=== PATIENT | female | born 1970 | race Caucasian/White ===

== ENCOUNTER 2019-07-14 00:54 | Emergency (ER) | payer SELFPAY ==
[2019-07-14 01:16] VITALS: TEMP 97.7
[2019-07-14] MEDS ORDERED: HYDROmorphone HCL INJ 2 MG/ML VIAL IV ONE (01:22)
[2019-07-14] MEDS ORDERED: METOCLOPRAMIDE HCL INJ 10 MG/2 ML VIAL IV ONE (01:23)
[2019-07-14] MEDS ORDERED: SODIUM CHLORIDE 0.9% 1000ML 1,000 ML IVS ONE (01:23)
--- NOTE | 2019-07-14 01:26 | ED.PDOC ---
History of Present Illness - General Chief Complaint: Dental/Mouth Stated Complaint: toothache x's 2 days, headache today Time Seen by Provider: 07/14/19 01:14 - History of Present Illness Initial Comments: 48F presents to the ED complaining of headache, toothache. The PMH is significant for crohn's disease, gastritis, COPD. She states that she broke her tooth on the left upper side two days ago and this has been causing her significant dental pain. She notes that this morning she had sudden onset of diffuse headache that she describes as "throbbing" and "the worst headache of my life." The headache is diffuse, worse with movement. No fevers, no focal neurologic complaints. No history of trauma. No other symptoms at this time. Allergies/Adverse Reactions: Allergies Codeine Allergy (Verified 07/14/19 01:12) Ketorolac Tromethamine [From Toradol] Allergy (Unverified 12/20/13 08:40) Morphine Allergy (Verified 07/14/19 01:12) Penicillins Allergy (Verified 07/14/19 01:12) Sulfa Drugs Allergy (Verified 07/14/19 01:12) Home Medications: Ambulatory Orders Zpnnagkrvj-Quykkhxxvisha-Hheyk [Fioricet] 1 cap PO Q4H PRN #20 cap 07/14/19 Clindamycin HCl 300 mg PO Q6HR #28 cap 07/14/19 raNITIdine HCL [Zantac] 300 mg PO DAILY 07/14/19 Review of Systems - Review of Systems Constitutional: States: malaise. Denies: chills, fever EENTM: States: nose congestion, mouth pain. Denies: eye pain, blurred vision, ear pain, throat swelling, mouth swelling Respiratory: Denies: cough, short of breath Cardiology: Denies: chest pain, palpitations Gastrointestinal/Abdominal: Denies: abdominal pain, nausea, vomiting Genitourinary: Denies: discharge, dysuria, frequency Musculoskeletal: States: no symptoms reported Skin: States: no symptoms reported Neurological: States: headache. Denies: numbness, paresthesia, tingling, weakness Endocrine: Denies: no symptoms reported Hematologic/Lymphatic: Denies: no symptoms reported Past Medical History (General) - Patient Medical History Hx Seizures: No Hx Stroke: No Hx Dementia: No Hx Asthma: No Hx of COPD: Yes Hx Cardiac Disorders: No Hx Congestive Heart Failure: No Hx Pacemaker: No Hx Hypertension: No Hx Thyroid Disease: No Hx Diabetes: No Hx Gastroesophageal Reflux: No Hx Renal Disease: No Hx Cancer: No Hx of HIV: No Hx Hepatitis C: No Hx MRSA: No Surgical History: other - Vaccination History Hx Tetanus, Diphtheria Vaccination: No Hx Influenza Vaccination: No - Social History Hx Tobacco Use: Yes Hx Alcohol Use: Yes Family Medical History - Family History Mother Family History: Unknown Physical Exam - Physical Exam General Appearance: Anxious, Restless, Well Developed, Well Groomed Eye Exam: bilateral normal Ears, Nose, Throat: hearing grossly normal, normal ENT inspection, normal pharynx, nasal congestion, other - fractured left upper first molar. No drainable fluid collection Neck: non-tender, full range of motion, supple, normal inspection Respiratory: lungs clear, normal breath sounds Neurologic: no motor/sensory deficits, alert, normal mood/affect, oriented x 3 Progress - Progress Progress: 07/14/19 02:13 Patient reassessed, her pain is resolved. Neurologic exam is non-focal. No evidence of acute intracranial process on CT head. There is no drainable fluid collection. She will continue outpatient follow up with dentistry and her PCP. H ome care instructions and return indications reviewed. - EKG/XRAY/CT CT: No acute intracranial process, see report Departure - Departure Clinical Impression: Dental caries Migraine headache Qualifiers: Migraine type: without aura Status migrainosus presence: with status migrainosus Intractability: not intractable Qualified Code(s): G43.001 - Migraine without aura, not intractable, with status migrainosus Disposition: Discharge to Home or Self Care Condition: Good Departure Forms: ED Discharge - Pt. Copy, Patient Portal Self Enrollment Instructions: DI for Dental Pain Diet: resume usual diet Activity: increase activity as tolerated Prescriptions: Clindamycin HCl 300 mg PO Q6HR #28 cap Hdrcjrnfff-Cvdnzzyiwmqcy-Ofqpk [Fioricet] 1 cap PO Q4H PRN #20 cap PRN Reason: Headache/Migraine Pain Home Medications: Ambulatory Orders Emwdavqrls-Wgsgsefsannst-Qmith [Fioricet] 1 cap PO Q4H PRN #20 cap 07/14/19 Clindamycin HCl 300 mg PO Q6HR #28 cap 07/14/19 raNITIdine HCL [Zantac] 300 mg PO DAILY 07/14/19 Additional Instructions: Follow up with your primary care provider and with dentistry. Take all antibiotics until gone. You may take tylenol and motrin in addition to prescribed pain medications. Return to the ED with any worsening of your symptoms. Comments: Jevon Calles MD Emergency Medicine Physician Number [id number]
--- NOTE | 2019-07-14 01:54 | CT ---
PROCEDURE: CT Head CLINICAL HISTORY: 48 years Female sudden onset headache TECHNIQUE: Contiguous axial CT images obtained through the brain without IV contrast. Coronal and sagittal reformats also provided. This CT exam was performed according to our departmental dose-optimization program, which includes one or more of the following dose reduction techniques: automated exposure control, adjustment of the mA and/or kV according to patient size, and/or use of iterative reconstruction technique. COMPARISON: No prior exams provided for comparison. FINDINGS: There is no intracranial hemorrhage, extraaxial collection, or acute transcortical infarction. The ventricles are normal in size and contour without mass-effect or midline shift. Osseous structures are normal. Minimal mucosal thickening in the maxillary sinuses, left greater than right. Trace secretions in the right ethmoid sinus. The remainder of the paranasal sinuses and bilateral mastoid air cells are clear. Visualized orbital structures are intact. IMPRESSION: Minimal maxillary and right ethmoid sinusitis. No other acute intracranial abnormality. Electronically signed by: Isaura Lui MD 07/14/2019 1:53 AM CDT
[2019-07-14 01:58] VITALS: BP 140/85; O2SAT 98
== END 2019-07-14 02:29 | disposition home or self-care (01) ==
LOC: ER 00:54
DX: K02.9 Dental caries, unspecified (principal); G43.001 Migraine without aura, not intractable, with status migrainosus; S02.5XXA Fracture of tooth (traumatic), initial encounter for closed fracture; J44.9 Chronic obstructive pulmonary disease, unspecified; X58.XXXA Exposure to other specified factors, initial encounter; Y92.9 Unspecified place or not applicable; Z87.891 Personal history of nicotine dependence; Z88.5 Allergy status to narcotic agent; Z88.0 Allergy status to penicillin; Z88.2 Allergy status to sulfonamides
CPT/HCPCS: 70450; 80048; 85025; J1170; J2765; J7030

== ENCOUNTER 2019-09-26 22:32 | Emergency (ER) | payer SELFPAY ==
[2019-09-26 22:44] VITALS: TEMP 97.6
[2019-09-26] MEDS ORDERED: ACETAMINOPHEN IV 1000MG 1,000 MG in PREMIX BOTTLE 1 BOTTLE IVPB ONE (22:53)
--- NOTE | 2019-09-26 23:08 | ED.PDOC ---
History of Present Illness - General Chief Complaint: Headache Stated Complaint: headache Time Seen by Provider: 09/26/19 22:52 Source: patient Exam Limitations: no limitations - History of Present Illness Initial Comments: 48 yo F who presents for headache, diffuse, feels like "someone is tugging my hair out", throbbing, constant, worsening slowly since onset 6 hours ago, asso ciated nausea. Similar to headaches in past which she has been seen here for, negative CT head at that time. Denies f/c, neck pain/stiffness, CP, SOB, cough, congestion, abd pain, v/d, change in vision, weakness, numbness. Allergies/Adverse Reactions: Allergies Codeine Allergy (Verified 07/14/19 01:12) Ketorolac Tromethamine [From Toradol] Allergy (Verified 07/14/19 02:28) Morphine Allergy (Verified 07/14/19 01:12) Penicillins Allergy (Verified 07/14/19 01:12) Sulfa Drugs Allergy (Verified 07/14/19 01:12) Home Medications: Ambulatory Orders Mpyvjaqnhw-Mwubcsvwthltn-Mmikl [Fioricet] 1 cap PO Q4H PRN #20 cap 07/14/19 Clindamycin HCl 300 mg PO Q6HR #28 cap 07/14/19 raNITIdine HCL [Zantac] 300 mg PO DAILY 07/14/19 Julvxstodbfay-Opqy-Bqvtktawsb [Fioricet] 1 ea PO Q8H PRN #6 tab 09/27/19 Review of Systems - Review of Systems Constitutional: Denies: chills, fever EENTM: Denies: blurred vision, double vision, nose congestion, throat pain Respiratory: Denies: cough, short of breath Cardiology: Denies: chest pain, palpitations, syncope Gastrointestinal/Abdominal: States: nausea. Denies: abdominal pain, constipation, diarrhea, vomiting Genitourinary: Denies: dysuria, frequency, hematuria Musculoskeletal: Denies: back pain, neck pain Skin: Denies: lesions, rash Neurological: States: headache. Denies: numbness, weakness Past Medical History (General) - Patient Medical History Hx Seizures: No Hx Stroke: No Hx Dementia: No Hx Asthma: No Hx of COPD: Yes Hx Cardiac Disorders: No Hx Congestive Heart Failure: No Hx Pacemaker: No Hx Hypertension: No Hx Thyroid Disease: No Hx Diabetes: No Hx Gastroesophageal Reflux: No Hx Renal Disease: No Hx Cancer: No Hx of HIV: No Hx Hepatitis C: No Hx MRSA: No Surgical History: other - Vaccination History Hx Tetanus, Diphtheria Vaccination: No Hx Influenza Vaccination: No - Social History Hx Tobacco Use: Yes Hx Alcohol Use: Yes Family Medical History - Family History Mother Family History: Unknown Physical Exam - Physical Exam General Appearance: Alert, Comfortable, No apparent distress, Well Developed, Well Nourished Eyes, Ears, Nose, Throat Exam: PERRL/EOMI, normal ENT inspection Neck: non-tender, full range of motion, supple, normal inspection, trachea midline Cardiovascular/Chest: normal peripheral pulses, regular rate, rhythm, no edema, no gallop, no JVD, no murmur Respiratory: chest non-tender, lungs clear, normal breath sounds, no respiratory distress, no accessory muscle use Gastrointestinal/Abdominal: normal bowel sounds, non tender, soft, no organomegaly, no pulsatile mass Back Exam: normal inspection, no CVA tenderness, no vertebral tenderness Extremity: normal range of motion, non-tender, normal inspection, no pedal edema, no calf tenderness Mental Status: alert, oriented x 3 pmp Exam: other - CN intact Coordination/Gait: normal finger to nose, normal gait Motor/Sensory: no motor deficit, no sensory deficit Lower Extremity DTR: left, patellar: 2+, right, patellar: 2+ Skin Exam: warm/dry, normal color Lymphatic: no adenopathy Progress - Progress Progress: I have explained and reviewed all results with the pt. Headache resolved after headache cocktail, neuro intact, VS wnl, labs unremarkable. I explained that emergent conditions may arise and to return to the ER for new, worsening, or any persistent conditions including but not limited to f/c, neck stiffness, weakness, numbness, intractable vomiting, continuation/worsening HER. I've explained the importance of f/u for recheck. All questions and concerns addressed at this time. Pt understands and agrees with plan. Pt well appearing, NAD, is stable for discharge. Audrey Becker MD Emergency Medicine Physician Billing Number [id number] - Results/Orders Results/Orders: Laboratory Results - last 24 hr 09/26/19 09/26/19 09/26/19 22:53 23:02 23:02 WBC 8.3 RBC 4.77 Hgb 13.4 Hct 40.7 MCV 85.5 MCH 28.2 MCHC 33.0 RDW 13.6 Plt Count 264 MPV 7.6 Absolute Neuts (auto) 5.00 Absolute Lymphs (auto) 2.20 Absolute Monos (auto) 0.80 Absolute Eos (auto) 0.20 Absolute Basos (auto) 0.10 Neutrophils % 59.8 Lymphocytes % 26.5 Monocytes % 9.9 H Eosinophils % 2.6 Basophils % 1.2 Sodium 136 Potassium 3.7 Chloride 104 Carbon Dioxide 23 Anion Gap 12.7 BUN 24 H Creatinine 1.05 BUN/Creatinine Ratio 22.9 H Random Glucose 105 Serum Osmolality 276.4 Calcium 8.9 Total Bilirubin 0.4 AST 18 ALT 11 Alkaline Phosphatase 88 Serum Total Protein 6.8 Albumin 3.7 Globulin 3.1 Albumin/Globulin Ratio 1.2 Urine Color Urine Appearance Urine pH Ur Specific Lula Urine Protein Urine Glucose (UA) Urine Ketones Urine Blood Urine Nitrite Urine Bilirubin Urine Urobilinogen Ur Leukocyte Esterase Urine RBC Urine WBC Ur Epithelial Cells Urine Bacteria Urine HCG, Qual Negative 09/26/19 23:48 WBC RBC Hgb Hct MCV MCH MCHC RDW Plt Count MPV Absolute Neuts (auto) Absolute Lymphs (auto) Absolute Monos (auto) Absolute Eos (auto) Absolute Basos (auto) Neutrophils % Lymphocytes % Monocytes % Eosinophils % Basophils % Sodium Potassium Chloride Carbon Dioxide Anion Gap BUN Creatinine BUN/Creatinine Ratio Random Glucose Serum Osmolality Calcium Total Bilirubin AST ALT Alkaline Phosphatase Serum Total Protein Albumin Globulin Albumin/Globulin Ratio Urine Color Yellow Urine Appearance Clear Urine pH 6.5 Ur Specific Lula 1.015 Urine Protein Negative Urine Glucose (UA) Negative Urine Ketones Negative Urine Blood Negative Urine Nitrite Negative Urine Bilirubin Negative Urine Urobilinogen 0.2 Ur Leukocyte Esterase Negative Urine RBC 0 Urine WBC 0 Ur Epithelial Cells 0-1 Urine Bacteria 0 Urine HCG, Qual Vital Signs - 24 hr 09/26/19 09/26/19 09/27/19 22:42 23:32 00:00 Temperature 97.6 F Pulse Rate [ 77 77 96 H Left Apical] Respiratory 14 14 14 Rate Blood Pressure 153/110 125/91 113/78 [Left Arm] O2 Sat by Pulse 100 99 99 Oximetry 09/27/19 00:35 Temperature Pulse Rate [ 96 H Left Apical] Respiratory 14 Rate Blood Pressure 113/78 [Left Arm] O2 Sat by Pulse 99 Oximetry FROM PREVIOUS VISIT FOR SIMILAR SX: PROCEDURE: CT Head CLINICAL HISTORY: 48 years Female sudden onset headache TECHNIQUE: Contiguous axial CT images obtained through the brain without IV contrast. Coronal and sagittal reformats also provided. This CT exam was performed according to our departmental dose-optimization program, which incl udes one or more of the following dose reduction techniques: automated exposure control, adjustment of the mA and/or kV according to patient size, and/or use of iterative reconstruction technique. COMPARISON: No prior exams provided for comparison. FINDINGS: There is no intracranial hemorrhage, extraaxial collection, or acute transcortical infarction. The ventricles are normal in size and contour without mass-effect or midline shift. Osseous structures are normal. Minimal mucosal thickening in the maxillary sinuses, left greater than right. Trace secretions in the right ethmoid sinus. The remainder of the paranasal sinuses and bilateral mastoid air cells are clear. Visualized orbital structures are intact. IMPRESSION: Minimal maxillary and right ethmoid sinusitis. No other acute intracranial abnormality. Electronically signed by: Isaura Lui MD 07/14/2019 1:53 AM CDT Departure - Departure Clinical Impression: Headache Time of Disposition: 00:12 Disposition: Discharge to Home or Self Care Health Concerns: condition: stable Departure Forms: ED Discharge - Pt. Copy, Patient Portal Self Enrollment Instructions: DI for Headache Prescriptions: Ozhqbasasxsgy-Eyey-Mogxxkkwao [Fioricet] 1 ea PO Q8H PRN #6 tab PRN Reason: Headache Or Mild Pain Home Medications: Ambulatory Orders Oemycuexbi-Dciybzuzxpjsi-Nbovp [Fioricet] 1 cap PO Q4H PRN #20 cap 07/14/19 Clindamycin HCl 300 mg PO Q6HR #28 cap 07/14/19 raNITIdine HCL [Zantac] 300 mg PO DAILY 07/14/19 Rvgifrbwjgqmw-Dcnq-Epznhjmuoq [Fioricet] 1 ea PO Q8H PRN #6 tab 09/27/19 Comments: Follow up: [facility] As needed, if symptoms worsen Your Primary Care Physician Make appointment, two days, for follow up
[2019-09-26] MEDS: METOCLOPRAMIDE HCL INJ 10 MG/2 ML VIAL IV ONE (23:09)
[2019-09-26] MEDS: SODIUM CHLORIDE 0.9% 1000ML 1,000 ML IVS ONE (23:09)
[2019-09-26] MEDS: diphenhydrAMINE HCL 50 MG/ML VIAL IV ONE (23:09)
[2019-09-26 23:44] VITALS: O2SAT 99
[2019-09-27 00:22] VITALS: BP 113/78
== END 2019-09-27 00:33 | disposition home or self-care (01) ==
LOC: ER 22:32
DX: R51 Headache (principal); R11.0 Nausea; J32.2 Chronic ethmoidal sinusitis; J44.9 Chronic obstructive pulmonary disease, unspecified; Z87.891 Personal history of nicotine dependence; Z79.899 Other long term (current) drug therapy; Z88.5 Allergy status to narcotic agent; Z88.0 Allergy status to penicillin; Z88.2 Allergy status to sulfonamides
CPT/HCPCS: 36415; 80053; 81001; 81025; 85025; J1200; J2765; J7030

== ENCOUNTER 2019-11-15 19:57 | Emergency (ER) | payer SELFPAY ==
[2019-11-15] MEDS ORDERED: LIDOCAINE 1% 10 ML VIAL INJ ONE (20:15)
[2019-11-15] MEDS ORDERED: CHLORHEXIDINE GLUCONATE 4 % 15 ML UD TOP ONE ×2 (20:15→20:37)
--- NOTE | 2019-11-15 20:26 | ED.PDOC ---
History of Present Illness - General Chief Complaint: Laceration Time Seen by Provider: 11/15/19 20:21 Source: patient, RN notes reviewed, Vital Signs reviewed Exam Limitations: no limitations - History of Present Illness Initial Comments: Pt presents to ED for right 2nd digit laceration 1 hour [employer]. States she was opening a tube with a knife and cut herself. Had minimal bleeding initially that resolved with pressure. unknown last tetanus. Able to flex and extend digit w/o difficulty. Allergies/Adverse Reactions: Allergies Codeine Allergy (Verified 11/15/19 20:29) Ketorolac Tromethamine [From Toradol] Allergy (Verified 11/15/19 20:29) Morphine Allergy (Verified 11/15/19 20:29) Penicillins Allergy (Verified 11/15/19 20:29) Sulfa Drugs Allergy (Verified 11/15/19 20:29) Tramadol Allergy (Verified 11/15/19 20:29) Home Medications: Ambulatory Orders Kuxpdzsfgz-Vxvdwwtereala-Akiws [Fioricet] 1 cap PO Q4H PRN #20 cap 07/14/19 Clindamycin HCl 300 mg PO Q6HR #28 cap 07/14/19 raNITIdine HCL [Zantac] 300 mg PO DAILY 07/14/19 Yyxfwbeorvxem-Szun-Awksxunagf [Fioricet] 1 ea PO Q8H PRN #6 tab 09/27/19 Review of Systems - Review of Systems Constitutional: Denies: chills, fever EENTM: States: no symptoms reported Respiratory: Denies: cough, orthopnea, short of breath Cardiology: Denies: chest pain, palpitations, syncope Gastrointestinal/Abdominal: Denies: diarrhea, nausea, vomiting Genitourinary: States: no symptoms reported Musculoskeletal: Denies: back pain, neck pain Skin: States: other - laceration right finger All other Systems: Reviewed and Negative Past Medical History (General) - Patient Medical History Hx Seizures: No Hx Stroke: No Hx Dementia: No Hx Asthma: No Hx of COPD: Yes Hx Cardiac Disorders: No Hx Congestive Heart Failure: No Hx Pacemaker: No Hx Hypertension: No Hx Thyroid Disease: No Hx Diabetes: No Hx Gastroesophageal Reflux: No Hx Renal Disease: No Hx Cancer: No Hx of HIV: No Hx Hepatitis C: No Hx MRSA: No - Vaccination History Hx Tetanus, Diphtheria Vaccination: No Hx Influenza Vaccination: No - Social History Hx Tobacco Use: Yes Hx Alcohol Use: Yes Family Medical History - Family History Mother Family History: Unknown Physical Exam - Physical Exam General Appearance: Comfortable, No apparent distress Neck: non-tender, full range of motion, supple Cardiovascular/Chest: regular rate, rhythm, no edema, no murmur Respiratory: lungs clear, normal breath sounds, no respiratory distress Gastrointestinal/Abdominal: non tender, soft Extremity: other - There is a 2 cm laceration to radial side of right 2nd digit at the DIP joint. It is superficial. 5/5 flexion and extension strength w/o pain. No sign of tendon involvement Neurologic: normal mood/affect Skin Exam: other - as above Procedures - Laceration/Wound Repair Right Finger Wound Length (cm): 2 Wound's Depth, Shape: linear Wound Explored: clean Irrigated w/ Saline (cc's): 100 Betadine Prep?: Yes Anesthesia: 1% Lidocaine Volume Anesthetic (cc's): 4 Wound Repaired With: sutures Suture Size/Type: 4:0, prolene Number of Sutures: 2 Layer Closure?: No Sterile Dressing Applied?: Yes Progress: Right 2nd digit laceration wound irrigated. Digital block performed by me with lidocaine w/o epi with good anesthesia. #2 4-0 Prolene sutures placed. Departure - Departure Clinical Impression: Laceration Time of Disposition: 21:01 Disposition: Discharge to Home or Self Care Condition: Good Departure Forms: ED Discharge - Pt. Copy, Patient Portal Self Enrollment Instructions: DI for Laceration Repair Diet: resume usual diet Activity: increase activity as tolerated Home Medications: Ambulatory Orders Kflizyadww-Vabnryotagtph-Idvmn [Fioricet] 1 cap PO Q4H PRN #20 cap 07/14/19 Clindamycin HCl 300 mg PO Q6HR #28 cap 07/14/19 raNITIdine HCL [Zantac] 300 mg PO DAILY 07/14/19 Nlchsxgpnydlc-Xjnm-Yluwcmnzkg [Fioricet] 1 ea PO Q8H PRN #6 tab 09/27/19 Comments: Keep wound clean and dry. Sutures will need to be removed in 8-10 days.
[2019-11-15 20:29] VITALS: TEMP 98.5
[2019-11-15] MEDS: TETANUS,DIPHTHERIA,PERTUSSIS 1 EA SYG IM ONE (20:39)
[2019-11-15] MEDS: LIDOCAINE 1% 10 ML VIAL INJ ONE (20:40)
[2019-11-15 21:29] VITALS: BP 136/89; O2SAT 97
== END 2019-11-15 21:25 | disposition home or self-care (01) ==
LOC: ER 19:57
DX: S61.210A Laceration without foreign body of right index finger without damage to nail, initial encounter (principal); J44.9 Chronic obstructive pulmonary disease, unspecified; Z87.891 Personal history of nicotine dependence; Z88.5 Allergy status to narcotic agent; Z88.0 Allergy status to penicillin; Z88.2 Allergy status to sulfonamides; Z79.899 Other long term (current) drug therapy; W26.0XXA Contact with knife, initial encounter; Y93.89 Activity, other specified; Y92.9 Unspecified place or not applicable

== ENCOUNTER 2020-04-08 16:17 | Emergency (ER) | payer SELFPAY ==
[2020-04-08] MEDS ORDERED: SODIUM CHLORIDE 0.9% (FLUSH) 10 ML SYG IV PRN (16:27)
[2020-04-08] MEDS ORDERED: SODIUM CHLORIDE 0.9% 1000ML 1,000 ML IVS PRN (16:27)
[2020-04-08] MEDS ORDERED: HYDROmorphone HCL INJ 2 MG/ML VIAL IV ONE ×2 (16:35→18:25)
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
[2020-04-08] MEDS ORDERED: SODIUM CHLORIDE 0.9% 1000ML 1,000 ML IVS ONE (18:25)
[2020-04-08] MEDS ORDERED: LIDOCAINE 1% W/ EPINEPHRINE 20 ML VIAL INJ ONE (18:25)
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
[2020-04-08] MEDS ORDERED: HYDROmorphone HCL INJ 2 MG/ML VIAL ONE (18:29)
[2020-04-08] MEDS ORDERED: CHLORHEXIDINE GLUCONATE 4 % 15 ML UD TOP ONE (18:29)
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
[2020-04-08 19:26] VITALS: BP 154/111; TEMP 97.3; O2SAT 98
== END 2020-04-08 18:46 | disposition short-term general hospital (02) ==
LOC: ER 16:17
DX: T14.8XXA Other injury of unspecified body region, initial encounter (principal); S00.03XA Contusion of scalp, initial encounter; S01.01XA Laceration without foreign body of scalp, initial encounter; M25.512 Pain in left shoulder; V86.95XA Unspecified occupant of 3- or 4- wheeled all-terrain vehicle (ATV) injured in nontraffic accident, initial encounter; Y92.9 Unspecified place or not applicable
CPT/HCPCS: 36415; 70450; 71045; 72125; 72128; 72131; 72170; 73030; 80053; 80320; 82150; 82550; 82553; 84484; 85025; 85610; 85730; 93005; 94760; J1170; J7030